=== PATIENT | male | born 1960 | race Caucasian/White ===

== ENCOUNTER 2021-07-24 15:58 | Emergency (ER) | payer SELFPAY ==
[~2021-07-24] VITALS: Ht 180 cm; Wt 102.0 kg
--- NOTE | 2021-07-24 16:46 | ED GI ---
General Chief Complaint: Abdominal/GI Problems Stated Complaint: ABD SWELLING Nursing Triage Note: THE PT IS AMBULATORY TO THE ROOM WITHOUT DIFFICULTY. NO DISTRESS IS SEEN ON ARRIVAL. LOC IS NORMAL FOR THE PT. THE PT C/O A DISTENDED ABD. THE PT HAS A LONG HX OF CA. Source of Information: Patient Exam Limitations: No Limitations (AMOL MILLER STUDENT) History of Present Illness Date Seen by Provider: Jul 24, 2021 Time Seen by Provider: 16:35 Initial Comments Mr. Tabor is a 60yoM with 3 year h/o HCC who presents requesting paracentesis. He has been having this done weekly for the last 3 months and they normally drain 6.5 - 8 L of fluid. Most recent procedure was last Saturday08/18/20 and they drained 8L. He does not have local PCP as he just moved here yesterday from [place], [place] to be with family and begin hospice care. He currently takes Everolimus for HCC. Patient reports SOA due to distended abdomen and diffuse body pain which he attributes to metastatic cancer. He has DMT2 and HTN. Due to a recent hospitalization with hyperkalemia (reported at 7.1), he no longer takes his Lisinopril for HTN. He is normotensive today 128/68. Patient's abdominal pain is 5/10 but he declines pain medication. Patient will undergo paracentesis in ED and will be discharged with information to contact Dr. Pritchard to establish oncology care. Timing/Duration: Getting Worse Severity/Quality: Mild Location: Generalized Abdomen Associated Symptoms: No Diaphoresis, No Fever/Chills, No Headache, No Heartburn, No Nausea/Vomiting; Shortness of Air (AMOL MILLER STUDENT) Allergies and Home Medications Allergies Coded Allergies: No Known Drug Allergies (Unverified , 07/24/21) Patient Home Medication List Home Medication List Reviewed: Yes (TAISHA CROOKS MD) Review of Systems Review of Systems Constitutional: No chills, No diaphoresis, No fever EENTM: No Blurred Vision, No Nose Congestion, No Throat Pain Respiratory: Denies Cough; Shortness of Air Cardiovascular: Edema; Denies Irregular Heart Rate, Denies Lightheadedness Gastrointestinal: Abdomen Distended, Abdominal Pain, Diarrhea; Denies Nausea, Denies Vomiting Genitourinary: Denies Incontinence, Denies Pain Musculoskeletal: No joint swelling, No muscle weakness Skin: No change in hair/nails; dryness Psychiatric/Neurological: Denies Anxiety, Denies Depressed Endocrine: No Symptoms Reported Hematologic/Lymphatic: No Symptoms Reported (AMOL MILLER STUDENT) Past Jdwofvf-Qjiuvh-Mqayku Hx Patient Social History Tobacco Use?: Yes Tobacco type used: Cigarettes Smoking Status: Current Everyday Smoker (smoked a pack a day for 50 years and is tapering down now) Use of E-Cig and/or Vaping dev: No Substance use?: Yes (distant past) Alcohol Use?: Yes Alcohol type: Hard Liquor Alcohol Frequency: Daily (Patient quit completely 2 years ago but previously was a heavy drinker for entire life) (AMOL MILLER STUDENT) Past Medical History Surgeries: Yes (inguinal hernia repair) Orthopedic (meniscal repair) Hypertension Chronic Diarrhea Degenerate Disk Disease Diabetes, Non-Insulin dep Liver Did You Recieve Any Treatments: Yes (AMOL MILLER) Physical Exam Vital Signs Vital Signs - First Documented 07/24/21 16:25 Temp 36.3 Pulse 100 Resp 18 B/P (MAP) 153/86 (108) Pulse Ox 100 (TAISHA CROOKS MD) Vital Signs Capillary Refill : Less Than 3 Seconds (AMOL MILLER STUDENT) Height/Weight/BMI Height: '" Weight: lbs. oz. kg; 31.00 BMI Method: General Appearance: WD/WN, no apparent distress HEENT: PERRL/EOMI, pharynx normal Neck: non-tender, full range of motion, normal inspection Respiratory: chest non-tender, no respiratory distress, no accessory muscle use, wheezing Cardiovascular: regular rate, rhythm, no gallop, no JVD Gastrointestinal: normal bowel sounds, distended (markedly distended) Extremities: no calf tenderness, pedal edema, swelling Back: no CVA tenderness, decreased range of motion Neurologic/Psychiatric: mobile ui/ux designer II-XII nml as tested, no motor/sensory deficits, alert, normal mood/affect, oriented x 3 Skin: warm/dry, pallor Lymphatic: no adenopathy (AMOL MILLER STUDENT) Progress/Results/Core Measures Results/Orders My Orders Orders - TAISHA CROOKS MD Lidocaine 1% Inj 20 Ml (Xylocaine 1% Inj (07/24/21 17:15) Lidocaine 1% Inj 20 Ml (Xylocaine 1% Inj (07/24/21 17:09) (TAISHA CROOKS MD) Vital Signs/I&O 07/24/21 16:25 Temp 36.3 Pulse 100 Resp 18 B/P (MAP) 153/86 (108) Pulse Ox 100 (TAISHA CROOKS MD) Blood Pressure Mean: 108 Progress Progress Note #1: Time: 17:37 Progress Note 60-year-old with end-stage liver cancer recently moved from [facility]. Complains of tense ascitic belly. Here for paracentesis. Has not established care yet with a primary, oncologist or surgeon. Complains of feeling short of breath. No infectious complaints. Not Covid vaccinated. Physical exam remarkable for expiratory wheezes throughout both lungs, oxygen saturations 100% on room air. He is not tachycardic or hypotensive. He has tense ascites in the belly that is not particularly tender. 3+ pitting edema bilateral lower extremities. Case discussed with Dr. Westfall who stated he would come to the emergency room to perform paracentesis and arrange follow-up with the patient. Patient states that he routinely does not get albumin after paracentesis. He states that usually take off 6 to 8 L. Patient will be referred to Dr. Kaufman, oncology. To Dr. Westfall. And he states he has already spoken with a hospice company. Progress Note #2: Time: 17:56 Progress Note patient draining. about 2.5L out. Will leave with Dr Redmond to monitor VS while the rest drains. (TAISHA CROOKS MD) Transfer of Care Time: 17:56 Care transferred to: Dr Redmond (TAISHA CROOKS MD) Departure Impression Primary Impression: Ascites Qualified Codes: R18.0 - Malignant ascites Additional Impression: History of liver cancer Disposition: 01 HOME, SELF-CARE Condition: Stable Departure-Patient Inst. Decision time for Depature: 17:36 (TAISHA CROOKS MD) Referrals: SUE WESTFALL BOBAN N NO,LOCAL PHYSICIAN (PCP) Primary Care Physician Patient Instructions: Liver Cancer Add. Discharge Instructions: Continue daily medications as previously prescribed. Follow-up with Dr. Westfall, call for an appointment for next week. Follow-up with your hospice care tomorrow. They can advise you on primary care. Return to the emergency room for any new, concerning or emergent complaints. Verification and Attestation of Medical Student E/M Service A medical student performed and documented this service in my presence. I reviewed and verified all information documented by the medical student and made modifications to such information, when appropriate. I personally performed the physical exam and medical decision making. Taisha Crooks, Jul 24, 2021,17:39 (TAISHA CROOKS MD) AMOL MILLER MED STUDENT Jul 24, 2021 16:46 TAISHA CROOKS MD Jul 24, 2021 17:39
[2021-07-24] MEDS ORDERED: LIDOCAINE 1% INJ 20 ML 20 ML VIAL ONE (17:09)
[2021-07-24] MEDS ORDERED: LIDOCAINE 1% INJ 20 ML 20 ML VIAL INJ ONE (17:15)
[2021-07-24] MEDS ORDERED: ALBUMIN 25% 25 GM/100 ML 100 ML IV ONE (19:30)
[2021-07-24 20:00] VITALS: BP 120/67
--- NOTE | 2021-07-24 23:01 | Consultation - Surgery ---
History of Present Illness History of Present Illness Patient Consulted On(elayne/time) 07/24/21 17:15 Date Seen by Provider: Jul 24, 2021 Time Seen by Provider: 17:15 History of Present Illness Consult requested by Dr. Chavira for symptomatic ascites. Patient is 60-year-old male who just moved here yesterday from [facility]. Patient states that he has liver masses and has anal cancer. Patient states that he has continued to develop ascites which she has had to have this drained multiple times. Patient states that he understands he has limited time left in came here to be with family and pass away. Patient states that he is having increasing shortness of breath and has constant abdominal pain from the distention of his abdomen. No radiation of pain. Last time it was drained was a week ago. Patient states he been getting 6 to 8 L of fluid off from the drain. Patient is getting in contact with hospice here. His son is present with him as well who is assisting him. Patient with no other complaints at this time. Denies any nausea or vomiting fever sweats chills or chest pain. Allergies and Home Medications Allergies Coded Allergies: No Known Drug Allergies (Unverified , 07/24/21) Patient Home Medication List Home Medication List Reviewed: Yes Past Bzhnyxp-Fjzxit-Aeznub Hx Patient Social History Smoking Status: Current Everyday Smoker (smoked a pack a day for 50 years and is tapering down now) Alcohol Use?: Yes Have you traveled recently?: No Surgeries History of Surgeries: Yes (inguinal hernia repair) Surgeries: Orthopedic (meniscal repair) Cardiovascular Cardiac Disorders: Hypertension Gastrointestinal Gastrointestinal Disorders: Chronic Diarrhea Musculoskeletal Musculoskeletal Disorders: Degenerate Disk Disease Endocrine Endocrine Disorders: Diabetes, Non-Insulin dep Cancer Cancer: Liver, Rectal (/anal) Reviewed Nursing Assessment Reviewed/Agree w Nursing PMH: Yes Family Medical History Significant Family History: No Pertinent Family Hx Review of Systems-General Constitutional: No chills, No diaphoresis EENTM: No blurred vision, No double vision Respiratory: No cough; short of breath Cardiovascular: No chest pain, No palpitations Gastrointestinal: abdominal pain; No nausea, No vomiting Genitourinary: No decreased output, No discharge Musculoskeletal: No back pain, No joint pain Skin: No change in color, No change in hair/nails Psychiatric/Neurological: Denies Anxiety, Denies Depressed, Denies Emotional Problems All Other Systems Reviewed Negative Unless Noted: Yes (Negative excepted noted.) Physical Exam-General Problems Physical Exam Vital Signs Vital Signs - First Documented 07/24/21 16:25 Temp 36.3 Pulse 100 Resp 18 B/P (MAP) 153/86 (108) Pulse Ox 100 Capillary Refill : Less Than 3 Seconds General Appearance: obese, other (Appears uncomfortable) HEENT: PERRL/EOMI, normal ENT inspection Neck: non-tender, supple Respiratory: chest non-tender, no respiratory distress, no accessory muscle use Cardiovascular: regular rate, rhythm, no JVD Gastrointestinal: distended, tenderness (Diffuse) Rectal: deferred Back: no CVA tenderness, no vertebral tenderness Extremities: non-tender, pedal edema, swelling Neurologic/Psychiatric: alert, normal mood/affect, oriented x 3 Skin: warm/dry, rash (Periumbilical) Lymphatic: no adenopathy Assessment/Plan Assessment/Plan Assessment/Plan Patient liver masses and anal cancer. Patient with no records available at this time for past treatment. Patient with symptomatic ascites. I discussed with the patient and the son long-term care goals. They are enrolling in hospice care and have already began that process. We discussed doing ultrasound-guided paracentesis for comfort purposes. They understand risk and benefits and wished to proceed. Patient may benefit from Pl eurx catheter placement in the near future. We will have patient follow-up next week. Will do paracentesis today as patient is requesting. Procedure: Ultrasound-guided paracentesis Patient was lying in supine position. Ultrasound was used to find the largest pocket of fluid. The area was prepped and draped in sterile fashion. 3 mL of 1% lidocaine was used anesthetize the area. An 11 blade scalpel was used to make a small skin incision at the safety centesis needle and catheter were then advanced until straw-colored fluid was withdrawn. The catheter was then advanced and the needle was removed. The total amount of fluid withdrawn was 7 L of straw-colored fluid. The catheter was then removed and sterile bandage was applied. Patient tolerated procedure well without complications. SUE WESTFALL DO Jul 24, 2021 23:01
== END 2021-07-24 20:01 | disposition home or self-care (01) ==
LOC: ER 16:01
DX: R18.8 Other ascites (principal); I10 Essential (primary) hypertension; E11.9 Type 2 diabetes mellitus without complications; F17.210 Nicotine dependence, cigarettes, uncomplicated; Z85.05 Personal history of malignant neoplasm of liver

== ENCOUNTER 2021-07-25 08:57 | Emergency (ER) | payer SELFPAY ==
[~2021-07-25] VITALS: Ht 177 cm; Wt 106.8 kg
[2021-07-25 09:26] VITALS: BP 133/75
--- NOTE | 2021-07-25 10:37 | ED Abdominal Pain ---
General Chief Complaint: Abdominal/GI Problems Stated Complaint: PARCENTESIS Nursing Triage Note: PT PRESENTS TO WITH C/O LEAKAGE FROM YESTERDAY'S PARACENTESIS. PT DENIES PAIN BUT STATES "THEY HAVE NEVER LEAKED THIS LONG BEFORE." IS A CANCER PT AND GETTING HOSPICE SET UP. Source of Information: Patient, Family Exam Limitations: No Limitations (LING ALFARO APRN) History of Present Illness Date Seen by Provider: Jul 25, 2021 Time Seen by Provider: 10:32 Initial Comments To ER by his son with reports of a persistently leaking paracentesis site to the left side of his abdomen. He had 6 L removed last night by Dr. Urrutia. 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 He states "I am about done for". They are in the process of getting hospice set up with [facility]. Patient just moved back here from [facility] to live with his son in [facility]. They state that [facility] told him that they would need in order to enroll him in hospice. They plan to see Dr. Urrutia next week for placement of a permanent paracentesis drain. Timing/Duration: 1 Day Severity/Quality: Moderate Location: Generalized Abdomen Radiation: No Radiation Activities at Onset: None Associated Symptoms: Denies Symptoms (LING ALFARO APRN) Allergies and Home Medications Allergies Coded Allergies: No Known Drug Allergies (Unverified , 07/24/21) Patient Home Medication List Home Medication List Reviewed: Yes (LING ALFARO APRN) Review of Systems Review of Systems Constitutional: see HPI; No chills, No fever EENTM: No Symptoms Reported Respiratory: No Symptoms Reported Cardiovascular: No Symptoms Reported Gastrointestinal: No Symptoms Reported Genitourinary: No Symptoms Reported Musculoskeletal: no symptoms reported Skin: no symptoms reported Psychiatric/Neurological: No Symptoms Reported Endocrine: No Symptoms Reported Hematologic/Lymphatic: No Symptoms Reported (LING ALFARO APRN) Past Muonppl-Kmgooz-Jihvig Hx Patient Social History Tobacco Use?: Yes Tobacco type used: Cigarettes Substance use?: No Alcohol Use?: No Pt feels they are or have been: No (LING ALFARO APRN) Past Medical History Surgeries: Yes (inguinal hernia repair) Orthopedic Hypertension Chronic Diarrhea Degenerate Disk Disease Diabetes, Non-Insulin dep Liver, Rectal Did You Recieve Any Treatments: Yes (LING ALFARO APRN) Family Medical History No Pertinent Family Hx (LING ALFARO APRN) Physical Exam Vital Signs Vital Signs - First Documented 07/25/21 09:26 Pulse 94 Resp 15 B/P (MAP) 133/75 (94) Pulse Ox 99 O2 Delivery Room Air (BAN MOSELEY MD) Vital Signs Capillary Refill : Less Than 3 Seconds (LING ALFARO APRN) Height/Weight/BMI Height: '" Weight: lbs. oz. kg; 34.00 BMI Method: General Appearance: WD/WN, no apparent distress, other (Alert and oriented very pleasant no distress) Neck: non-tender, full range of motion Respiratory: no respiratory distress, no accessory muscle use Gastrointestinal: normal bowel sounds, other (Firm distended abdomen small puncture wound to the left lateral abdomen with no surrounding erythema. There is persistently oozing serous fluid from this.) Extremities: normal range of motion, non-tender Neurologic/Psychiatric: alert, normal mood/affect, oriented x 3 Skin: normal color, warm/dry (LING ALFARO APRN) Progress/Results/Core Measures Results/Orders Vital Signs/I&O 07/25/21 09:26 Pulse 94 Resp 15 B/P (MAP) 133/75 (94) Pulse Ox 99 O2 Delivery Room Air (BAN MOSELEY MD) Blood Pressure Mean: 94 Departure Communication (Admissions) Anesthetized around the puncture site with 0.5 mL of 1% lidocaine with epinephrine. Iakzfq-zw-cdzzw suture using 5-0 Prolene placed. No more oozing of fluid. Covered with Band-Aid. (LING ALFARO APRN) Impression Primary Impression: Ascites Additional Impression: History of liver cancer Disposition: HOME, SELF-CARE Condition: Stable Departure-Patient Inst. Decision time for Depature: 10:36 (LING ALFARO APRN) Referrals: NO,LOCAL PHYSICIAN (PCP) Primary Care Physician Patient Instructions: No Instuctions Given ATTENDING PHYSICIAN NOTE: I was physically present as attending physician in the emergency department during the care of this patient, but I was not directly involved in the decision making or delivery of care for this patient. (BAN MOSELEY MD) LING ALFARO APRN Jul 25, 2021 10:37 BAN MOSELEY MD Jul 25, 2021 17:40
[2021-08-03] MEDS ORDERED: FURO-124 PO (12:11)
[2021-08-03] MEDS ORDERED: MORP100S7 PO (12:11)
[2021-08-03] MEDS ORDERED: LORA2ORA PO (12:11)
== END 2021-07-25 10:46 | disposition home or self-care (01) ==
LOC: EDUNIT# 08:57 → ER 09:00
DX: R18.8 Other ascites (principal); I10 Essential (primary) hypertension; E11.9 Type 2 diabetes mellitus without complications; Z72.0 Tobacco use
CPT/HCPCS: 99281

== ENCOUNTER 2021-08-02 12:51 | Inpatient (IN) | payer SELFPAY ==
[~2021-08-02] VITALS: Ht 177.8 cm; Wt 121.0 kg
--- NOTE | 2021-08-02 13:11 | ED GI ---
General Chief Complaint: Abdominal/GI Problems Stated Complaint: ABD/SCROTAL PAIN Source of Information: Patient Exam Limitations: No Limitations (LING ALFARO APRN) History of Present Illness Date Seen by Provider: Aug 02, 2021 Time Seen by Provider: 13:10 (LING ALFARO APRN) Initial Comments Patient is a 60-year-old known to have end-stage hepatocellular carcinoma, presents to the emergency department with significant scrotal and penile swelling and "I need tapped". Patient's last paracentesis was July 24. We took off 6L. He is awaiting permanent drain placement by Dr. Urrutia when he gets financial issues sorted out (has not yet followed up in clinic). Complains of dribbling urine - severe scrotal swelling. No fevers, chills. Chronic cough. Has (I believe) [facility] on board now. Last pain medications about 10am; on oxycontin and morphine, No other complaints of infection or injury. Timing/Duration: 3-4 Days Severity/Quality: Severe, Aching Location: Generalized Abdomen (TAISHA CROOKS MD) Allergies and Home Medications Allergies Coded Allergies: No Known Drug Allergies (Unverified , 07/24/21) Patient Home Medication List Home Medication List Reviewed: Yes (TAISHA CROOKS MD) Review of Systems Review of Systems Constitutional: malaise, weakness EENTM: No Symptoms Reported Respiratory: Cough (chronic) Cardiovascular: No Symptoms Reported Gastrointestinal: Abdomen Distended, Abdominal Pain Genitourinary: Other (scrotal pain and swelling; retention) Musculoskeletal: other (leg swelling) Psychiatric/Neurological: Depressed (TAISHA CROOKS MD) All Other Systems Reviewed Negative Unless Noted: Yes (TAISHA CROOKS MD) Past Jnzgnwf-Trderd-Qvgcnz Hx Patient Social History Tobacco Use?: Yes Tobacco type used: Cigarettes Smoking Status: Current Someday Smoker Substance use?: No Alcohol Use?: No Pt feels they are or have been: No (LING ALFARO APRN) Immunizations Up To Date Influenza Vaccine Up-to-Date: No; Not Current (LING ALFARO APRN) Past Medical History Surgery/Hospitalization HX: RECTAL CANCER, DM, HTN Surgeries: Yes (inguinal hernia repair) Orthopedic Hypertension Chronic Diarrhea Degenerate Disk Disease Diabetes, Non-Insulin dep Liver, Rectal Did You Recieve Any Treatments: Yes (LING ALFARO APRN) Family Medical History No Pertinent Family Hx (LING ALFARO APRN) Physical Exam Vital Signs Capillary Refill : Height/Weight/BMI Height: '" Weight: lbs. oz. kg; 34.00 BMI Method: (LING ALFARO APRN) General Appearance: mild distress HEENT: PERRL/EOMI Neck: normal inspection Respiratory: no respiratory distress, no accessory muscle use, wheezing (expiratory right greater then left) Cardiovascular: regular rate, rhythm Gastrointestinal: abnormal bowel sounds (hypoactive), distended, tenderness, other (distended tender hypoactive BS) Genital/Rectal: other (massive scrotal and penile swelling; glans penis "buried" in edema) Extremities: normal range of motion, pedal edema Neurologic/Psychiatric: alert, normal mood/affect, oriented x 3 Skin: normal color, warm/dry (TAISHA CROOKS MD) Progress/Results/Core Measures Results/Orders Lab Results Laboratory Tests Test 08/02/21 13:45 08/02/21 14:25 Range/Units White Blood Count 5.2 4.3-11.0 10^3/uL Red Blood Count 3.34 L 4.30-5.52 10^6/uL Hemoglobin 7.6 L 13.3-17.7 g/dL Hematocrit 26 L 40-54 % Mean Corpuscular Volume 78 L 80-99 fL Mean Corpuscular Hemoglobin 23 L 25-34 pg Mean Corpuscular Hemoglobin Concent 29 L 32-36 g/dL Red Cell Distribution Width 17.9 H 10.0-14.5 % Platelet Count 195 130-400 10^3/uL Mean Platelet Volume 11.4 9.0-12.2 fL Immature Granulocyte % (Auto) 0 % Neutrophils (%) (Auto) 72 42-75 % Lymphocytes (%) (Auto) 11 L 12-44 % Monocytes (%) (Auto) 15 H 0-12 % Eosinophils (%) (Auto) 1 0-10 % Basophils (%) (Auto) 1 0-10 % Neutrophils # (Auto) 3.8 1.8-7.8 10^3/uL Lymphocytes # (Auto) 0.6 L 1.0-4.0 10^3/uL Monocytes # (Auto) 0.8 0.0-1.0 10^3/uL Eosinophils # (Auto) 0.0 0.0-0.3 10^3/uL Basophils # (Auto) 0.0 0.0-0.1 10^3/uL Immature Granulocyte # (Auto) 0.0 0.0-0.1 10^3/uL Prothrombin Time 14.8 H 12.2-14.7 SEC INR Comment 1.1 0.8-1.4 Activated Partial Thromboplast Time 40 H 24-35 SEC Sodium Level 134 L 135-145 MMOL/L Potassium Level 6.5 *H 3.6-5.0 MMOL/L Chloride Level 105 98-107 MMOL/L Carbon Dioxide Level 18 L 21-32 MMOL/L Anion Gap 11 5-14 MMOL/L Blood Urea Nitrogen 39 H 7-18 MG/DL Creatinine 1.25 0.60-1.30 MG/DL Estimat Glomerular Filtration Rate 59 BUN/Creatinine Ratio 31 Glucose Level 246 H 70-105 MG/DL Calcium Level 8.6 8.5-10.1 MG/DL Corrected Calcium 9.3 8.5-10.1 MG/DL Total Bilirubin 0.5 0.1-1.0 MG/DL Aspartate Amino Transf (AST/SGOT) 15 5-34 U/L Alanine Aminotransferase (ALT/SGPT) 15 0-55 U/L Alkaline Phosphatase 97 40-136 U/L Total Protein 6.4 6.4-8.2 GM/DL Albumin 3.1 L 3.2-4.5 GM/DL My Orders Orders - TAISHA CROOKS MD Catheter(Urinary) Insert & Ass 15 (08/02/21 13:13) Lidocaine 2% (Urojet) (Xylocaine Urojet) (08/02/21 13:17) Morphine Injection (Morphine Injection (08/02/21 13:24) Ed Iv/Invasive Line Start (08/02/21 13:26) Cbc With Automated Diff (08/02/21 13:26) Comprehensive Metabolic Panel (08/02/21 13:26) Protime With Inr (08/02/21 13:26) Partial Thromboplastin Time (08/02/21 13:26) Ua Culture If Indicated (08/02/21 13:26) Morphine Injection (Morphine Injection (08/02/21 13:26) Medications Given in ED Current Medications Medications Dose Ordered Sig/Louis Route Start Time Stop Time Status Last Admin Dose Admin Lidocaine HCl 10 ml STK-MED ONCE .ROUTE 08/02/21 13:17 08/02/21 13:21 DC 08/02/21 13:30 10 ML (TAISHA CROOKS MD) Admisison Planning May Need Admission (Planning): 13:26 (TAISHA CROOKS MD) Progress Progress Note : Time: 13:25 Progress Note Discussed with Dr. Urrutia at 115, recommended admit observation to hospitalist service, basic laboratory studies. Will get an abdominal ultrasound and keep n.p.o. after midnight so that he can place a permanent Pleurx drain in the morning. (TAISHA CROOKS MD) Departure Communication (Admissions) Time/Spoke to Admitting Phy: 20:[address] Deras, Regular Insulin 8u; will do que'd orders (TAISHA CROOKS MD) Impression Primary Impression: Ascites Qualified Codes: R18.0 - Malignant ascites Additional Impressions: Scrotal pain Liver cancer Qualified Codes: C22.0 - Liver cell carcinoma Disposition: 09 ADMITTED INPATIENT Condition: Stable Admissions Decision to Admit Reason: Admit from ER (General) Decision to Admit/Date: Aug 02, 2021 Time/Decision to Admit Time: 13:28 (TAISHA CROOKS MD) Departure-Patient Inst. Referrals: NO,LOCAL PHYSICIAN (PCP/Family) Primary Care Physician LING ALFARO APRN Aug 02, 2021 13:11 TAISHA CROOKS MD Aug 02, 2021 13:19
[2021-08-02] MEDS ORDERED: LIDOCAINE UROJET 2% GEL 10 ML PKG ONE (13:17)
[2021-08-02] MEDS ORDERED: morphine INJ 10 MG/ML 1ML (SYR OR VIAL) ONE (13:24)
[2021-08-02] MEDS ORDERED: morphine INJ 10 MG/ML 1ML (SYR OR VIAL) IVP STA ×2 (13:26→14:55)
[2021-08-02 14:02] LABS: BASOPHILS % (AUTO) 1 % (0-10); EOSINOPHILS % (AUTO) 1 % (0-10); HEMATOCRIT 26 % (40-54); HEMOGLOBIN 7.6 g/dL (13.3-17.7); LYMPHOCYTES # (AUTO) 0.6 10^3/uL (1.0-4.0); LYMPHOCYTES % (AUTO) 11 % (12-44); MEAN CORPUSCULAR HEMOGLOBIN 23 pg (25-34); MEAN CORPUSCULAR HGB CONC 29 g/dL (32-36); MEAN CORPUSCULAR VOLUME 78 fL (80-99); MEAN PLATELET VOLUME 11.4 fL (9.0-12.2); MONOCYTES # (AUTO) 0.8 10^3/uL (0.0-1.0); MONOCYTES % (AUTO) 15 % (0-12); NEUTROPHILS # (AUTO) 3.8 10^3/uL (1.8-7.8); NEUTROPHILS % (AUTO) 72 % (42-75); PLATELET COUNT 195 10^3/uL (130-400); WHITE BLOOD COUNT 5.2 10^3/uL (4.3-11.0)
--- NOTE | 2021-08-02 14:05 | Consultation - Surgery ---
[place] 08/02/21 1405: History of Present Illness History of Present Illness Patient Consulted On(elayne/time) 08/02/21 13:52 Date Seen by Provider: Aug 02, 2021 Time Seen by Provider: 13:52 History of Present Illness Saw Tabor is a 60 YO male with a history of end stage hepatocellular carcinoma, who presented to the ER for evaluation and management of symptomatic ascites and significant scrotal and penile swelling. He states that this has been going on for about a week, and had recent drainage. Surgical consult was requested for abdominal pleurex placement. Patient was laying supine in bed awaiting catheter placement upon my arrival; he states diffuse achey pain and difficulty breathing d/t fluid accumulation. He denies any N/V, fevers, or any recent illnesses, but has a mild productive cough, which he associates with smoking. Saw appears to have depressed affect, but was conversational. He presently lives with his son and was on hospice. Allergies and Home Medications Allergies Coded Allergies: No Known Drug Allergies (Unverified , 07/24/21) Patient Home Medication List Home Medication List Reviewed: Yes Past Gqqnrvu-Emfykc-Zvonqv Hx Patient Social History Smoking Status: Current Someday Smoker Alcohol Use?: No Surgeries History of Surgeries: Yes (inguinal hernia repair) Surgeries: Orthopedic Cardiovascular Cardiac Disorders: Hypertension Gastrointestinal Gastrointestinal Disorders: Chronic Diarrhea Musculoskeletal Musculoskeletal Disorders: Degenerate Disk Disease Endocrine Endocrine Disorders: Diabetes, Non-Insulin dep Cancer Cancer: Liver, Rectal Family Medical History Significant Family History: No Pertinent Family Hx Review of Systems-General Constitutional: No fever; malaise EENTM: No hearing loss, No blurred vision Respiratory: cough, phlegm, stridor Cardiovascular: No chest pain; edema Gastrointestinal: abdominal pain; No nausea, No vomiting Genitourinary: other (Symptomatic ascites) Musculoskeletal: back pain, joint pain Skin: dryness Psychiatric/Neurological: Depressed; Denies Headache Physical Exam-General Problems Physical Exam Vital Signs Capillary Refill : General Appearance: WD/WN, no apparent distress Eyes: Bilateral Eye Normal Inspection, Bilateral Eye PERRL, Bilateral Eye EOMI HEENT: PERRL/EOMI, normal ENT inspection Neck: full range of motion, normal inspection Respiratory: rales, rhonchi, stridor Cardiovascular: regular rate, rhythm, gallop/S3 Peripheral Pulses: 2+ Radial Pulses (L) Gastrointestinal: distended, tenderness Rectal: deferred Extremities: other (pitting edema) Neurologic/Psychiatric: alert, normal mood/affect, oriented x 3 Skin: normal color, warm/dry Lymphatic: no adenopathy Assessment/Plan Assessment/Plan Assessment/Plan 1. End-stage Hepatocellular Carcinoma 2. Scrotal and penile swelling with urinary retention 3. Symptomatic ascites On pain medication Patient denies any anti-coagulation Scheduled for intra-abdominal pleurex catheter placement [facility]INGER Jason DO 08/02/211943: History of Present Illness History of Present Illness History of Present Illness Patient with end stage HCC. On hospice. Abdomen, scrotum,penis, and extremities with worsening swelling over the last week. Increasing diffiulty breathing. Has had several previous paracentesis. Last time I saw him in ER we discussed placement of abdominal pleur-x catheter placement. Patient states legs hurt. Having difficulty urinating, but ford was able to be placed. No family present at this time. Denies n/v fever sweats chills or chest pain. Allergies and Home Medications Allergies Coded Allergies: No Known Drug Allergies (Unverified , 07/24/21) Patient Home Medication List Home Medication List Reviewed: Yes Past Xqbnbkh-Rjlkpz-Vajroh Hx Reviewed Nursing Assessment Reviewed/Agree w Nursing PMH: Yes Family Medical History Significant Family History: No Pertinent Family Hx Review of Systems-General Constitutional: No fever; malaise EENTM: No hearing loss, No blurred vision Respiratory: cough, dyspnea on exertion, phlegm, short of breath Cardiovascular: No chest pain; edema Gastrointestinal: abdominal pain; No vomiting Genitourinary: other (Symptomatic ascites) Musculoskeletal: back pain, joint pain Skin: No change in color, No change in hair/nails Psychiatric/Neurological: Denies Anxiety; Depressed All Other Systems Reviewed Negative Unless Noted: Yes (Negative excepted noted.) Physical Exam-General Problems Physical Exam General Appearance: obese, other (minimally labored breathing) HEENT: PERRL/EOMI, normal ENT inspection Neck: non-tender, supple, normal inspection Respiratory: chest non-tender, no accessory muscle use, other (minimally labored breathing) Cardiovascular: regular rate, rhythm, no JVD Gastrointestinal: distended, tenderness (diffuse, edema throughout the abdo anila wall) Rectal: deferred Genital/Rectal: other (significant scrotal and penile swelling/edema) Back: normal inspection, no vertebral tenderness Extremities: other (pitting edema upper and lower extremities, lower greater than upper) Neurologic/Psychiatric: alert, oriented x 3 Skin: normal color, warm/dry Lymphatic: no adenopathy Assessment/Plan Assessment/Plan Assessment/Plan end stage hcc anasarca shortness of breath secondary to above symptomatic ascites urinary retention ford already placed u/s done at bedside no collection large enough of fluid that is safe to place pleur-x catheter patient to receive lasix 80 mg poor prognosis which patient understands Supervisory-Addendum Brief Verification & Attestation Participated in pt care: history, MDM, physical Personally performed: exam, history, MDM, supervision of care Care discussed with: Medical Student Procedures: n/a Results interpretation: Verified all documentation Verification and Attestation of Medical Student E/M Service A medical student performed and documented this service in my presence. I reviewed and verified all information documented by the medical student and made modifications to such information, when appropriate. I personally performed the physical exam and medical decision making. Sue Westfall, Aug 02, 2021,19:50 [place] Aug 02, 2021 14:05 SUE WESTFALL DO Aug 02, 2021 19:44
[2021-08-02 14:07] LABS: ALBUMIN 3.1 GM/DL (3.2-4.5)
[2021-08-02 14:08] LABS: CALCIUM 8.6 MG/DL (8.5-10.1); INR 1.1 (0.8-1.4); PROTHROMBIN TIME PATIENT 14.8 SEC (12.2-14.7)
[2021-08-02 14:10] LABS: TOTAL PROTEIN 6.4 GM/DL (6.4-8.2)
[2021-08-02 14:11] LABS: BILIRUBIN,TOTAL 0.5 MG/DL (0.1-1.0)
[2021-08-02 14:13] LABS: CREATININE SERUM 1.25 MG/DL (0.60-1.30)
[2021-08-02 14:17] LABS: POTASSIUM 6.5 MMOL/L (3.6-5.0)
[2021-08-02 14:36] LABS: CLARITY,URINE CLEAR; COLOR,URINE YELLOW; GLUCOSE, URINE (UA) NEGATIVE (NEGATIVE); KETONES,URINE NEGATIVE (NEGATIVE); LEUKOCYTE ESTERASE ,URINE NEGATIVE (NEGATIVE); NITRITE,URINE NEGATIVE (NEGATIVE); PH,URINE 5.5 (5-9); PROTEIN,URINE TRACE (NEGATIVE)
[2021-08-02 14:45] LABS: BILIRUBIN,URINE NEGATIVE (NEGATIVE)
[2021-08-02] MEDS ORDERED: inSUlin (REGULAR) HUMAN 1 UNIT/0.01 ML (CHARGE PER UNIT) SC ONE (14:45)
[2021-08-02 14:46] LABS: AMORPHOUS SEDIMENT,UR FEW AMOR URATES /LPF; BACTERIA,URINE NEGATIVE /HPF; HYALINE CASTS, URINE 0-2 /LPF; WBC,URINE 0-2 /HPF
[2021-08-02] MEDS ORDERED: LORazepam INJ 2 MG/ML (ATIVAN) VIAL IVP STA (16:56)
[2021-08-02] MEDS ORDERED: FUROSEMIDE 40 MG/4 ML INJ (LASIX) IVP ONE (17:15)
--- NOTE | 2021-08-02 19:36 | History & Physical-Hospitalist ---
History of Present Illness HPI/Chief Complaint CC: Ascites with urinary retention HPI: He revoked hospice to come to the ER. Due to inability to urinate a catheter was placed. But due to severe scrotal edema, he required pain medication prior to insertion. He was found to have a potassium level of 6.5. He is on hospice for end stage liver cancer and Dr. Urrutia will perform paracentesis with pleurX catheter placement and then discharge home on hospice tomorrow. Source: patient Exam Limitations: no limitations Date Seen 08/02/21 Time Seen by a Provider: 17:00 Attending Physician PCP No,Local Physician Referring Physician Date of Admission Home Medications & Allergies Home Medications Reviewed patient Home Medication Reconciliation performed by pharmacy medication reconciliations communications tower technician and/or nursing. Patients Allergies have been reviewed. Allergies Allergies Coded Allergies No Known Drug Allergies (Unverified07/24/21) Past Hvifrtp-Hhahem-Vtlioq Hx Patient Social History Marrital Status: single Employed/Student: retired Tobacco Use?: Yes Tobacco type used: Cigarettes Smoking Status: Current Someday Smoker Substance use?: No Alcohol Use?: No Pt feels they are or have been: No Immunizations Up To Date Tetanus Booster (TDap): Unknown Current Status Advance Directives: No Primary Language: Wallisian Sensory deficits: Vision impairment Past Medical History Surgeries: Orthopedic Hypertension Chronic Diarrhea Degenerate Disk Disease Diabetes, Non-Insulin dep Liver, Rectal Did You Recieve Any Treatments: Yes Family Medical History No Pertinent Family Hx Review of Systems Constitutional: see HPI, dizziness, malaise, weakness EENTM: no symptoms reported Respiratory: dyspnea on exertion Cardiovascular: no symptoms reported Gastrointestinal: no symptoms reported Genitourinary: no symptoms reported Musculoskeletal: no symptoms reported Skin: no symptoms reported Psychiatric/Neurological: No Symptoms Reported All Other Systems Reviewed Negative Unless Noted: Yes Physical Exam Physical Exam Vital Signs Vital Signs - First Documented 08/02/21 08/03/21 13:00 01:37 Temp 36.3 Pulse 100 Resp 22 B/P (MAP) 130/78 (95) Pulse Ox 97 O2 Delivery Room Air O2 Flow Rate 2.00 Capillary Refill : Height, Weight, BMI Height: '" Weight: lbs. oz. kg; 32.00 BMI Method: General Appearance: Anxious, Chronically ill, Mild Distress Eyes: Right Eye Normal Inspection, Right Eye PERRL HEENT: PERRL/EOMI, Normal ENT Inspection, Pharynx Normal, Moist Mucous Membranes Neck: Full Range of Motion, Normal Inspection, Non Tender Respiratory: Chest Non Tender, Lungs Clear, Normal Breath Sounds, No Accessory Muscle Use, No Respiratory Distress Cardiovascular: Regular Rate, Rhythm, No Gallop, No JVD, No Murmur, Normal Peripheral Pulses Gastrointestinal: Normal Bowel Sounds, No Organomegaly, No Pulsatile Mass, Non Tender, Soft Back: Normal Inspection, No CVA Tenderness, No Vertebral Tenderness Extremity: Normal Capillary Refill, Normal Inspection, Normal Range of Motion, Non Tender, No Calf Tenderness, Pedal Edema Neurologic/Psychiatric: Alert, Oriented x3, No Motor/Sensory Deficits, Normal Mood/Affect Skin: Normal Color, Warm/Dry Lymphatic: No Adenopathy Results Results/Procedures Labs Laboratory Tests 08/02/21 13:45 Patient resulted labs reviewed. Assessment/Plan Admission Diagnosis Assessment: End stage liver disease on hospice Hepatocellular carcinoma Edema/anasarca Ascites Hyperkalemia Plan: Gene Urrutia consult Potassium management Admission Status: Observation Reason for Inpatient Admission: ascites CLEMENT CRANE DO Aug 02, 2021 19:36
[2021-08-02] MEDS ORDERED: morphine IMMEDIATE RELEASE 15 MG TABLET PO SCH (22:30)
[2021-08-03 00:08] VITALS: BP 116/55
[2021-08-03] MEDS ORDERED: ONDANSETRON 4 MG (ZOFRAN) ORAL DISSOLVE TAB PO PRN (00:30)
[2021-08-03] MEDS ORDERED: ONDANSETRON 4 MG/2 ML (SDV) Z0FRAN IV PRN (00:30)
[2021-08-03] MEDS ORDERED: diphenhydrAMINE 50 MG/ML INJ (BENADRYL) IVP PRN (00:30)
[2021-08-03] MEDS ORDERED: MELATONIN 3 MG TABLET PO PRN (00:30)
[2021-08-03] MEDS ORDERED: ANTACID SUSP 30 ML UDC (MYLANTA) PO PRN (00:30)
[2021-08-03] MEDS ORDERED: LACTULOSE SYRUP 10GM/15ML (ENULOSE) 30ML UDC PO PRN (00:30)
[2021-08-03] MEDS ORDERED: NALOXONE 0.4 MG/ML 1 ML (NARCAN) VIAL IV PRN (00:30)
[2021-08-03] MEDS ORDERED: MILK OF MAGNESIA 400 MG/5 ML 30 ML UDC PO PRN (00:30)
[2021-08-03] MEDS ORDERED: polyethylene glycoL POWDER 17 GM (MIRALAX) PACK PO PRN (00:30)
[2021-08-03] MEDS ORDERED: CALCIUM CARBONATE 500 MG (TUMS) TAB.CHEW PO PRN (00:30)
[2021-08-03] MEDS ORDERED: morphine INJ 4 MG/ML 1 ML (VIAL/SYRINGE) IV PRN (00:30)
[2021-08-03] MEDS ORDERED: BISACODYL 10 MG SUPP (DULCOLAX) PR PRN (00:30)
[2021-08-03] MEDS ORDERED: LACTATED RINGERS 1,000 ML IV PRN (00:30)
[2021-08-03] MEDS ORDERED: diphenhydrAMINE 25 MG TAB (BENADRYL) PO PRN (00:30)
[2021-08-03] MEDS ORDERED: ACETAMINOPHEN 325 MG TABLET PO PRN (00:30)
[2021-08-03] MEDS ORDERED: morphine IMMEDIATE RELEASE 15 MG TABLET PO PRN (00:30)
[2021-08-03 03:24] VITALS: BP 119/63
[2021-08-03] MEDS: morphine INJ 4 MG/ML 1 ML (VIAL/SYRINGE) IVP PRN ×2 (03:26→11:41)
[2021-08-03] MEDS: inSUlin ASPART (NovoLOG) 1 UNIT/0.01 ML (CHARGE PER UNIT) SC SCH ×2 (05:32→11:41)
[2021-08-03 07:40] LABS: BASOPHILS % (AUTO) 1 % (0-10); EOSINOPHILS # (AUTO) 0.1 10^3/uL (0.0-0.3); EOSINOPHILS % (AUTO) 2 % (0-10); HEMATOCRIT 27 % (40-54); HEMOGLOBIN 7.9 g/dL (13.3-17.7); LYMPHOCYTES # (AUTO) 0.6 10^3/uL (1.0-4.0); LYMPHOCYTES % (AUTO) 12 % (12-44); MEAN CORPUSCULAR HEMOGLOBIN 23 pg (25-34); MEAN CORPUSCULAR HGB CONC 29 g/dL (32-36); MEAN CORPUSCULAR VOLUME 77 fL (80-99); MEAN PLATELET VOLUME 11.2 fL (9.0-12.2); MONOCYTES % (AUTO) 18 % (0-12); NEUTROPHILS # (AUTO) 3.7 10^3/uL (1.8-7.8); NEUTROPHILS % (AUTO) 68 % (42-75); PLATELET COUNT 240 10^3/uL (130-400); WHITE BLOOD COUNT 5.4 10^3/uL (4.3-11.0)
[2021-08-03 07:48] VITALS: BP 124/69
[2021-08-03 07:59] LABS: INR 1.1 (0.8-1.4); PROTHROMBIN TIME PATIENT 14.8 SEC (12.2-14.7)
[2021-08-03 08:05] LABS: ALBUMIN 3.1 GM/DL (3.2-4.5); BILIRUBIN,TOTAL 0.5 MG/DL (0.1-1.0); CALCIUM 8.9 MG/DL (8.5-10.1); CREATININE SERUM 1.24 MG/DL (0.60-1.30); POTASSIUM 6.3 MMOL/L (3.6-5.0)
[2021-08-03] MEDS: SOD POLYSTERENE 15 GM/60 ML (KAYEXALATE) UNIT DOSE PO SCH ×2 (09:00→13:00)
[2021-08-03] MEDS ORDERED: SENNOSIDES 8.6 MG (SENOKOT) TAB PO SCH (09:00)
[2021-08-03] MEDS ORDERED: DOCUSATE SODIUM 100 MG (COLACE) CAP PO SCH (09:00)
[2021-08-03 11:28] VITALS: BP_SYST 115; BP_SYST 143; BP_DIAS 66; BP_DIAS 75
[2021-08-03] MEDS ORDERED: FURO-124 PO (12:11)
[2021-08-03] MEDS ORDERED: LORA2ORA PO (12:11)
[2021-08-03] MEDS ORDERED: MORP100S7 PO (12:11)
--- NOTE | 2021-08-03 12:11 | Discharge Summary ---
Discharge Summary Hospital Course Was the Problem List Reviewed?: Yes Problems/Dx: (1) Ascites Status: Acute Qualifiers: Qualified Codes: R18.0 - Malignant ascites (2) Liver cancer Status: Acute Qualifiers: Qualified Codes: C22.0 - Liver cell carcinoma Hospital Course Date of Admission: Aug 03, 2021 at 00:33 Admission Diagnosis : Family Physician/Provider: No,Local Physician Date of Discharge: 08/03/21 Discharge Diagnosis: liver cancer on hospice, urinary retention requiring cath placement, anasarca Hospital Course: Pt had a brief hospital course after he was admitted for ascites and anasarca. Ultrasound did not show anything to show anything to perform a Paracentesis per Dr. Urrutia. He was given IV Lasix and sent back home after a catheter was inserted and will be maintained at discharge due to Urinary Retention. He was on [facility]. Labs and Pending Lab Test: Laboratory Tests 08/02/21 13:45: White Blood Count 5.2, Red Blood Count 3.34L, Hemoglobin 7.6L, Hematocrit 26L, Mean Corpuscular Volume 78L, Mean Corpuscular Hemoglobin 23L, Mean Corpuscular Hemoglobin Concent 29L, Red Cell Distribution Width 17.9H, Platelet Count 195, Mean Platelet Volume 11.4, Immature Granulocyte % (Auto) 0, Neutrophils (%) (Auto) 72, Lymphocytes (%) (Auto) 11L, Monocytes (%) (Auto) 15H, Eosinophils (%) (Auto) 1, Basophils (%) (Auto) 1, Neutrophils # (Auto) 3.8, Lymphocytes # (Auto) 0.6L, Monocytes # (Auto) 0.8, Eosinophils # (Auto) 0.0, Basophils # (Auto) 0.0, Immature Granulocyte # (Auto) 0.0, Prothrombin Time 14.8H, INR Comment 1.1, Activated Partial Thromboplast Time 40H, Sodium Level 134L, Potassium Level 6.5*H, Chloride Level 105, Carbon Dioxide Level 18L, Anion Gap 11, Blood Urea Nitrogen 39H, Creatinine 1.25, Estimat Glomerular Filtration Rate 59, BUN/Creatinine Ratio 31, Glucose Level 246H, Calcium Level 8.6, Corrected Calcium 9.3, Total Bilirubin 0.5, Aspartate Amino Transf (AST/SGOT) 15, Alanine Aminotransferase (ALT/SGPT) 15, Alkaline Phosphatase 97, Total Protein 6.4, Albumin 3.1L 08/02/21 14:25: Urine Color YELLOW, Urine Clarity CLEAR, Urine pH 5.5, Urine Specific Ozone >=1.030, Urine Protein TRACEH, Urine Glucose (UA) NEGATIVE, Urine Ketones NEGATIVE, Urine Nitrite NEGATIVE, Urine Bilirubin NEGATIVE, Urine Urobilinogen 0.2, Urine Leukocyte Esterase NEGATIVE, Urine RBC (Auto) NEGATIVE, Urine RBC NONE, Urine WBC 0-2, Urine Squamous Epithelial Cells 2-5, Urine Crystals PRESENTH, Urine Amorphous Sediment FEW HAL URATESH, Urine Bacteria NEGATIVE, Urine Casts PRESENT, Urine Hyaline Casts 0-2H, Urine Mucus NEGATIVE, Urine Culture Indicated NO 08/03/21 00:55: SARS-CoV-2 RNA (RT-PCR) Not Detected 08/03/21 05:19: Glucometer 165H 08/03/21 07:30: White Blood Count 5.4, Red Blood Count 3.51L, Hemoglobin 7.9L, Hematocrit 27L, Mean Corpuscular Volume 77L, Mean Corpuscular Hemoglobin 23L, Mean Corpuscular Hemoglobin Concent 29L, Red Cell Distribution Width 17.8H, Platelet Count 240, Mean Platelet Volume 11.2, Immature Granulocyte % (Auto) 0, Neutrophils (%) (Auto) 68, Lymphocytes (%) (Auto) 12, Monocytes (%) (Auto) 18H, Eosinophils (%) (Auto) 2, Basophils (%) (Auto) 1, Neutrophils # (Auto) 3.7, Lymphocytes # (Auto) 0.6L, Monocytes # (Auto) 1.0, Eosinophils # (Auto) 0.1, Basophils # (Auto) 0.0, Immature Granulocyte # (Auto) 0.0, Prothrombin Time 14.8H, INR Comment 1.1, Sodium Level 137, Potassium Level 6.3H, Chloride Level 106, Carbon Dioxide Level 19L, Anion Gap 12, Blood Urea Nitrogen 40H, Creatinine 1.24, Estimat Glomerular Filtration Rate 66, BUN/Creatinine Ratio 32, Glucose Level 163H, Calcium Level 8.9, Corrected Calcium 9.6, Total Bilirubin 0.5, Aspartate Amino Transf (AST/SGO T) 13, Alanine Aminotransferase (ALT/SGPT) 15, Alkaline Phosphatase 110, Ammonia 22, Total Protein 6.0L, Albumin 3.1L 08/03/21 10:21: Glucometer 159H Assessment/Pt Instructions Hospice Discharge Planning: <30 minutes discharge planning Discharge Instructions Discharge Diet: No Restrictions Discharge Physical Examination Vital Signs Vital Signs Date Time Temp Pulse Resp B/P (MAP) Pulse Ox O2 Delivery O2 Flow Rate FiO2 08/03/21 11:28 36.7 96 18 115/66 (82) 98 Nasal Cannula 2.00 General Appearance: No Apparent Distress, WD/WN, Chronically ill Allergies: Coded Allergies: No Known Drug Allergies (Unverified , 07/24/21) Discharge Summary Date of Admission Aug 03, 2021 at 00:33 Date of Discharge Discharge Date: Aug 03, 2021 Admission Diagnosis Assessment: End stage liver disease on hospice Hepatocellular carcinoma Edema/anasarca Ascites Hyperkalemia Plan: Gene Urrutia consult Potassium management Clinical Quality Measures DVT/VTE Risk/Contraindication: Contraindications-Pharm: Other *list below* Other: operation CLEMENT CRANE DO Aug 03, 2021 12:11
--- NOTE | 2021-08-03 15:16 | Progress Note - Surgery ---
[place] 08/03/21 1516: Subjective Date Seen by a Provider: Aug 03, 2021 Time Seen by a Provider: 15:08 Subjective/Events-last exam Upon follow-up for CC of abdominal swelling--Saw is resting supine in bed. He states continued general discomfort with regards to breathing and pain due to the swelling in his abdomen, penile, and scrotal area. We discussed that there was no indication for intra-abdominal pluer-x catheter placement at this time due to inadequate pocket of fluid for drainage. Discussed possible diuretic therapy to reduce fluid accumulation, and to follow-up if needed. Patient also expressed frustration regarding not knowing what frequent lab draws were for; it was explained that this was to monitor his lab values regularly during his stay. Patient reported understanding of this. Review of Systems General: Fatigue, Malaise HEENT: No Eye Pain, No Ear Pain Pulmonary: Dyspnea, Cough Cardiovascular: Edema; No: Palpitations Gastrointestinal: No: Nausea, Vomiting Genitourinary: Frequency, Incontinence Musculoskeletal: No: arm pain, back pain Neurological: Weakness, Numbness Focused Exam Respiratory: No Accessory Muscle Use, Crackles, Decreased Breath Sounds Cardiovascular: Regular Rate, Rhythm, Normal Peripheral Pulses, Gallop/S3 Peripheral Pulses: 2+ Radial Pulses (L) Skin: normal color, warm/dry Objective Exam Vital Signs Date Time Temp Pulse Resp B/P (MAP) Pulse Ox O2 Delivery O2 Flow Rate FiO2 08/03/21 11:28 36.7 96 18 115/66 (82) 98 Nasal Cannula 2.00 08/03/21 09:17 Nasal Cannula 2.50 08/03/21 08:00 93 Nasal Cannula 2.00 08/03/21 07:48 36.8 106 20 124/69 (87) 96 Nasal Cannula 2.00 08/03/21 03:24 103 18 119/63 (81) 95 Nasal Cannula 2.00 08/03/21 01:37 93 Nasal Cannula 2.00 08/03/21 00:08 37.0 102 18 116/55 (75) 90 Room Air 08/03/21 00:05 36.3 81 20 117/60 97 Room Air I & O 08/03/21 07:00 Intake Total 0 ml Output Total 1500 ml Balance -1500 ml Capillary Refill : General Appearance: No Apparent Distress, Anxious, Chronically ill HEENT: PERRL/EOMI, Normal ENT Inspection, Pharynx Normal, Moist Mucous Membranes Neck: Full Range of Motion, Normal Inspection, Non Tender Respiratory: No Accessory Muscle Use, No Respiratory Distress, Crackles, Stridor Cardiovascular: Regular Rate, Rhythm, No Gallop, No JVD, No Murmur, Normal Peripheral Pulses, Gallop/S3 Peripheral Pulses: 2+ Radial Pulses (L) Gastrointestinal: abnormal bowel sounds (hypoactive), distended, tenderness, other (distended tender hypoactive BS) Extremity: Normal Capillary Refill, Normal Inspection, Normal Range of Motion, Non Tender, No Calf Tenderness, Pedal Edema Neurologic/Psychiatric: Alert, Oriented x3, No Motor/Sensory Deficits, Depressed Affect Skin: Normal Color, Warm/Dry Lymphatic: No Adenopathy Results Lab Laboratory Tests 08/03/21 00:55: SARS-CoV-2 RNA (RT-PCR) Not Detected 08/03/21 05:19: Glucometer 165H 08/03/21 07:30: White Blood Count 5.4, Red Blood Count 3.51L, Hemoglobin 7.9L, Hematocrit 27L, Mean Corpuscular Volume 77L, Mean Corpuscular Hemoglobin 23L, Mean Corpuscular Hemoglobin Concent 29L, Red Cell Distribution Width 17.8H, Platelet Count 240, Mean Platelet Volume 11.2, Immature Granulocyte % (Auto) 0, Neutrophils (%) (Auto) 68, Lymphocytes (%) (Auto) 12, Monocytes (%) (Auto) 18H, Eosinophils (%) (Auto) 2, Basophils (%) (Auto) 1, Neutrophils # (Auto) 3.7, Lymphocytes # (Auto) 0.6L, Monocytes # (Auto) 1.0, Eosinophils # (Auto) 0.1, Basophils # (Auto) 0.0, Immature Granulocyte # (Auto) 0.0, Prothrombin Time 14.8H, INR Comment 1.1, Sodium Level 137, Potassium Level 6.3H, Chloride Level 106, Carbon Dioxide Level 19L, Anion Gap 12, Blood Urea Nitrogen 40H, Creatinine 1.24, Estimat Glomerular Filtration Rate 66, BUN/Creatinine Ratio 32, Glucose Level 163H, Calcium Level 8.9, Corrected Calcium 9.6, Total Bilirubin 0.5, Aspartate Amino Transf (AST/SGOT) 13, Alanine Aminotransferase (ALT/SGPT) 15, Alkaline Phosphatase 110, Ammonia 22, Total Protein 6.0L, Albumin 3.1L 08/03/21 10:21: Glucometer 159H Assessment/Plan Assessment/Plan Assessment/Plan end stage hcc anasarca shortness of breath secondary to above symptomatic ascites urinary retention ford already placed u/s done at bedside no collection large enough of fluid that is safe to place pleur-x catheter patient to receive lasix 80 mg poor prognosis which patient understands Clinical Quality Measures DVT/VTE Risk/Contraindication: Contraindications-Pharm: Other *list below* Other: operation FREDDY URRUTIA DO 08/03/21 1604: Subjective Subjective/Events-last exam Patient breathing still having shortness of breath. Edema and swelling has gone done some due to diuresis. U/s done at bedside yesterday no adequate fluid collection for drainage. Saw understands these findings. Wanting food. Denies n/v fever sweats chills or chest pain at this time. Objective Exam General Appearance: No Apparent Distress, Anxious, Chronically ill HEENT: PERRL/EOMI, Normal ENT Inspection Neck: Normal Inspection, Non Tender Respiratory: No Accessory Muscle Use, No Respiratory Distress, Crackles Cardiovascular: Regular Rate, Rhythm, No JVD Gastrointestinal: distended, tenderness, other (distended with abdominal wall edema, minimal discomfort tenderness with palpation diffusely, scrotal and penile swelling/edema slightly improved) Extremity: Non Tender, Pedal Edema, Other (diffuse edema upper and lower extremity- improved compared to yesterday.) Neurologic/Psychiatric: Alert, Oriented x3, Depressed Affect Skin: Normal Color, Warm/Dry Lymphatic: No Adenopathy Assessment/Plan Assessment/Plan Assessment/Plan end stage hcc anasarca shortness of breath secondary to above symptomatic ascites urinary retention overall edema slightly improved would consider continued diuresis patient on hospice no pocket for drainage or placement of pleurx catheter Supervisory-Addendum Brief Verification & Attestation Participated in pt care: history, MDM, physical Personally performed: exam, history, MDM, supervision of care Care discussed with: Medical Student Procedures: n/a Results interpretation: Verified all documentation Verification and Attestation of Medical Student E/M Service A medical student performed and documented this service in my presence. I revie wed and verified all information documented by the medical student and made modifications to such information, when appropriate. I personally performed the physical exam and medical decision making. Freddy Urrutia, Aug 03, 2021,16:04 [place] Aug 03, 2021 15:16 FREDDY URRUTIA DO Aug 03, 2021 16:04
[2021-08-03 15:39] VITALS: BP 116/58
[2021-08-03 17:21] VITALS: BP 116/58
== END 2021-08-03 16:45 | disposition hospice, home (50) | DRG 436 ==
LOC: ER 12:52 → 4TH 08-03 00:33
PROVIDERS: ADMIT Internal Medicine; ATTEND Internal Medicine
DX: C22.0 Liver cell carcinoma (principal); C20 Malignant neoplasm of rectum; R18.0 Malignant ascites; K72.10 Chronic hepatic failure without coma; Z66 Do not resuscitate; Z20.822 Contact with and (suspected) exposure to COVID-19; E87.5 Hyperkalemia; N50.89 Other specified disorders of the male genital organs; R33.9 Retention of urine, unspecified; F17.210 Nicotine dependence, cigarettes, uncomplicated; E11.9 Type 2 diabetes mellitus without complications; I10 Essential (primary) hypertension; N50.82 Scrotal pain
CPT/HCPCS: 36415; 51702; 80053; 81000; 82140; 82947; 85025; 85610; 85730; 87081; 87636